=== PATIENT | male | born 1995 | race Caucasian/White ===

== ENCOUNTER 2023-01-04 17:19 | Emergency (ER) | payer BC, OTHER ==
[2023-01-04] MEDS ORDERED: Lidocaine 1% 10 ML MDV INJECT ONE (18:04)
== END 2023-01-04 18:59 | disposition home or self-care (01) ==
LOC: JD.ED 17:19
DX: S61.412A Laceration without foreign body of left hand, initial encounter (principal); W26.0XXA Contact with knife, initial encounter
CPT/HCPCS: 12002; 99282; J3490